=== PATIENT | male | born 1955 | race Caucasian/White ===

== ENCOUNTER 2018-02-23 09:49 | Emergency (ER) | payer OTHER ==
[~2018-02-23] VITALS: Ht 180.3 cm; Wt 84.4 kg
[~2018-02-23 09:49] MED LIST: [UNRECOGNIZED DRUG - REMARK]
[2018-02-23] MEDS ORDERED: COZAAR100 MG (10:18)
[2018-02-23] MEDS ORDERED: METFORMIN HCL1000 M1 (10:18)
[2018-02-23] MEDS ORDERED: ASA81 MG (10:18)
[2018-02-23] MEDS ORDERED: METFORMIN HCL500 MG (10:18)
[2018-02-23] MEDS ORDERED: NORVASC10 MG (10:19)
== END 2018-02-23 12:54 | disposition home or self-care (01) ==
LOC: ER 09:49
DX: R42 Dizziness and giddiness (principal); N39.0 Urinary tract infection, site not specified

== ENCOUNTER 2018-03-02 10:44 | Outpatient (CLI) | payer OTHER ==
[~2018-03-02 10:44] MED LIST changes: +ASA81 MG; +COZAAR100 MG; +METFORMIN HCL1000 M1; +METFORMIN HCL500 MG; +NORVASC10 MG
== END 2018-03-02 11:19 | disposition home or self-care (01) ==
LOC: SONOGRAMA 10:44
DX: N40.0 Benign prostatic hyperplasia without lower urinary tract symptoms (principal); F52.21 Male erectile disorder; I86.1 Scrotal varices